=== PATIENT | female | born 2000 | race Caucasian/White ===

== ENCOUNTER → 2024-02-17 12:28 | Outpatient (REF) | payer BC, SELFPAY ==
[2024-02-17 14:43] LABS: % Basophils 0.5 % (0-2); % Eosinophils 1.4 % (0-6); % Immature Granulocytes 0.2 % (0-0.5); % Lymphocytes 20.6 % (20.5-51.1); % Monocytes 4.7 % (1.7-9.3); % Neutrophils 72.6 % (42.2-75.2); Absolute Basophils 0.1 10^3/uL (0-0.2); Absolute Eosinophils 0.2 10^3/uL (0-0.7); Absolute Lymphocytes 2.3 10^3/uL (1.2-3.4); Absolute Monocytes 0.5 10^3/uL (0.1-0.6); Absolute Neutrophils 8.1 10^3/uL (1.4-6.5); Hematocrit 36.2 % (37.0-47.0); Hemoglobin 12.3 g/dL (12.0-16.0); Mean Corpuscular Hgb 29.1 pg (27.0-31.0); Mean Corpuscular Volume 85.6 fL (81.0-99.0); Nucleated Red Blood Cells % 0 %; Platelet Count 356 10^3/uL (130-400); Red Blood Cell Count 4.23 10^6/uL (4.20-5.40); Red Cell Dist. Width 12.2 % (11.5-14.5); White Blood Cell Count 11.1 10^3/uL (4.8-10.8)
[2024-02-17 14:55] LABS: ALT (SGPT) 14 U/L (0-35); AST (SGOT) 20 U/L (14-36); Albumin 4.6 g/dl (3.5-5.0); Alkaline Phosphatase 72 U/L (38-126); Blood Urea Nitrogen 13 mg/dl (7-17); Calcium 9.9 mg/dl (8.4-10.2); Carbon Dioxide 25 mmol/L (22-30); Chloride 101 mmol/L (98-107); Glucose 100 mg/dl (70-99); Potassium 3.9 mmol/L (3.5-5.1); Sodium 135 mmol/L (135-145); Total Bilirubin 0.8 mg/dl (0.2-1.3); Total Protein 7.6 g/dl (6.3-8.2); eGFR > 60.00
[2024-02-17 14:57] LABS: Erythrocyte Sed Rate 20 mm/hour (0-20)
[2024-02-17 15:02] LABS: Urine Albumin Negative (Neg - Trace); Urine Bilirubin Negative (Negative); Urine Character Slightly Cloudy (Clear); Urine Color Yellow; Urine Glucose Negative (Negative); Urine Ketone Negative (Negative); Urine Leukocyte Negative (Negative); Urine Nitrite Negative (Negative); Urine Occult Blood Negative (Negative); Urine Urobilinogen Negative (Neg - 1+)
[2024-02-17 15:03] LABS: C-Reactive Protein < 5.00 mg/L (0.0-10.00)
[2024-02-17 15:27] LABS: Hepatitis B Surface Antigen Negative (Negative)
[2024-02-17 15:46] LABS: Hepatitis B Core Ab, Total Negative (Negative); Hepatitis B Surface Antibody Negative; Hepatitis C Antibody Negative (Negative)
[2024-02-19 17:44] LABS: Angiotensin-1-converting Enzym 28 U/L (16-85)
[2024-02-19 20:33] LABS: ANA, IgG Reflex to HEp-2 None Detected (None Detected)
[2024-02-19 23:30] LABS: Complement C3 125 mg/dl (88-165)
== END ==
LOC: HWLAB 12:28
PROVIDERS: ATTENDING PHYSICIAN Internal Medicine Rheumatology
DX: R21 Rash and other nonspecific skin eruption (principal); J18.9 Pneumonia, unspecified organism
CPT/HCPCS: 36415; 71046; 80053; 81003; 82164; 83516; 85025; 85652; 86038; 86140; 86160; 86704; 86706; 86803; 87340

== ENCOUNTER → 2024-02-18 08:31 | Outpatient (REF) | payer BC, SELFPAY ==
[2024-02-20 14:56] LABS: Quantiferon Mitogen minus NIL 3.34 IU/mL; Quantiferon NIL 0.02 IU/mL; Quantiferon TB Gold Plus Negative (Negative)
[2024-02-20 22:19] LABS: ds-DNA Ab, IgG Reflex To Titer 6 IU (0-24)
[2024-02-21 07:21] LABS: Smith/RNP (ENA), IgG 3 Units (0-19)
== END ==
LOC: REG 08:31
PROVIDERS: ATTENDING PHYSICIAN Internal Medicine Rheumatology
DX: R21 Rash and other nonspecific skin eruption (principal)
CPT/HCPCS: 36415; 86225; 86235; 86480

== ENCOUNTER → 2024-03-26 08:48 | Outpatient (REF) | payer BC, SELFPAY ==
[2024-03-26 12:00] LABS: Vitamin D, 25-OH*** 23.4 ng/mL (30-80)
[2024-03-26 12:04] LABS: IgA 246 mg/dl (70-400)
[2024-03-26 12:50] LABS: Folate 5.5 ng/ml (2.76-20); Vitamin B12 469 pg/ml (239-931)
[2024-03-26 14:39] LABS: Rheumatoid Agglutinin Less Than 10 IU (<10 IU)
[2024-03-27 12:19] LABS: IgG Subclass 4 37 mg/dL (1-123)
[2024-03-27 13:30] LABS: CCP Antibody IgG/IgA 8 Units (0-19)
[2024-03-27 17:41] LABS: Endomysial IgA Antibody Titer <1:10 (<1:10)
[2024-03-27 19:54] LABS: HLA-B27 Negative (Negative)
[2024-03-28 15:48] LABS: tTG IgA Antibody 15.7 EU/ml (0-19)
== END ==
LOC: RAD 08:48
PROVIDERS: ATTENDING PHYSICIAN Internal Medicine Rheumatology; FAMILY PHYSICIAN Internal Medicine Infectious Disease
DX: R59.9 Enlarged lymph nodes, unspecified (principal); R19.7 Diarrhea, unspecified
CPT/HCPCS: 36415; 74178; 82306; 82607; 82746; 82784; 82787; 83516; 86200; 86231; 86430; 86812; Q9967

== ENCOUNTER → 2024-05-01 11:19 | Outpatient (REF) | payer BC, SELFPAY | LOC: HWRAD 11:19 | PROVIDERS: ATTENDING PHYSICIAN Nurse Practitioner Family | DX: N83.201 Unspecified ovarian cyst, right side (principal) | CPT/HCPCS: 76830; 76856 ==